=== PATIENT | male | born 1985 | race Caucasian/White ===

== ENCOUNTER 2017-06-04 12:45 | Emergency (ER) | payer MEDICAID ==
--- NOTE | 2017-06-04 14:05 | ER Document Report ---
HPI - HPI Patient complains to provider of: finger injury Onset: Yesterday Onset/Duration: Sudden Quality of pain: Throbbing Pain Level: 4 Context: 31-year-old was playing with his daughter and jammed his right third finger on the floor. It swollen and painful at the PIP joint. No previous injury. He is right-handed. Associated Symptoms: None Exacerbated by: Denies Relieved by: Denies Similar symptoms previously: No Recently seen / treated by doctor: No - ROS ROS below otherwise negative: Yes Systems Reviewed and Negative: Yes All other systems reviewed and negative Past Medical History - General Information source: Patient - Social History Smoking Status: Current Every Day Smoker Smoking Education Provided: Yes Frequency of alcohol use: None Drug Abuse: None Lives with: Family Family History: Reviewed & Not Pertinent - Medical History Medical History: Negative Surgical Hx: Negative Vertical Provider Document - CONSTITUTIONAL Agree With Documented VS: Yes Exam Limitations: No Limitations General Appearance: No Apparent Distress - INFECTION CONTROL TRAVEL OUTSIDE OF THE [place] IN LAST 30 DAYS: No - NECK Neck: Supple - MUSCULOSKELETAL/EXTREMETIES Musculoskeletal/Extremeties: Tender - Right third finger at the PIP joint. There is some swelling. Neurovascular is intact. The flexor tendons and extensor tendons are functioning normally., Edema. negative: FROM - NEURO Level of Consciousness: Awake Motor/Sensory: No Motor Deficit, No Sensory Deficit - DERM Integumentary: Warm, Dry Course - Re-evaluation Re-evalutation: 06/04/17 14:27 X-rays negative per radiologist - Vital Signs Vital signs: Temp Pulse Resp BP Pulse Ox 97.8 F 119 H 18 151/98 H 96 06/04/17 12:50 06/04/17 12:50 06/04/17 12:50 06/04/17 12:50 06/04/17 12:50 Procedures - Immobilization Right Finger 3rd digit Time completed: 15:03 Pre-Proc Neuro Vasc Exam: Normal Immobilizer type: Finger splint (Static) Performed by: PCT Post-Proc Neuro Vasc Exam: Normal Alignment checked and good: Yes Discharge - Discharge Clinical Impression: Right third finger sprain Condition: Good Disposition: HOME, SELF-CARE Instructions: Acetaminophen, Sprained Finger ([facility]), Temporary Splint ([facility]), Ultram ([facility]) Additional Instructions: splint tylenol motrin Call and schedule appointment with Dr. workman for finger recheck this week Prescriptions: Tramadol HCl [Ultram 50 mg Tablet] 50 mg PO ASDIR PRN #15 tablet PRN Reason: Forms: Return to Work Referrals: XIOMY HOWE DO [ACTIVE STAFF] - Follow up as needed (call for follow up appointment this week)
--- NOTE | 2017-06-04 14:12 | RADIOLOGY REPORT (SQ) ---
EXAM DESCRIPTION: FINGER RIGHT COMPLETED DATE/TIME: 06/04/2017 1:31 pm REASON FOR STUDY: jammed on floor 4-10 COMPARISON: None. NUMBER OF VIEWS: Three views. TECHNIQUE: AP, lateral, and oblique images acquired of the right 3rd finger LIMITATIONS: None. FINDINGS: MINERALIZATION: Normal. BONES: No acute fracture or dislocation. No worrisome bone lesions. SOFT TISSUES: No soft tissue swelling. No foreign body. OTHER: No other significant finding. IMPRESSION: NO RADIOGRAPHIC EVIDENCE OF ACUTE INJURY. COMMENT: SITE OF TRAUMA/COMPLAINT MARKED/STAMP COMPLETED: Yes TECHNICAL DOCUMENTATION: JOB ID: [id number] [employer]- All Rights Reserved Reading location - IP/workstation name: [email or web address]
[2017-06-04 15:26] VITALS: BP 132/97
== END 2017-06-04 15:25 | disposition home or self-care (01) ==
LOC: ER 12:45
DX: S63.612A Unspecified sprain of right middle finger, initial encounter (principal); W22.09XA Striking against other stationary object, initial encounter; F17.200 Nicotine dependence, unspecified, uncomplicated
CPT/HCPCS: 99283

== ENCOUNTER 2017-06-22 23:11 | Emergency (ER) | payer MEDICAID ==
[2017-06-23] MEDS ORDERED: PREDNISONE 20 MG TABLET PO ONE (01:47)
[2017-06-23] MEDS ORDERED: IPRATROPIUM/ALBUTEROL 0.5-2.5 MG/3 ML AMPUL NEB ONE ×2 (01:47→02:54)
--- NOTE | 2017-06-23 01:49 | ER Document Report ---
ED Respiratory Problem - General Chief Complaint: Breathing Difficulty Stated Complaint: DIFFICULTY BREATHING Time Seen by Provider: 06/23/17 01:33 Notes: Patient is a 31-year-old male comes emergency department for chief complaint of 2 days of cough, wheezing, shortness of breath. He states that he was mowing the lawn and kicked up a lot of dust, he states he thinks he inhaled some of it , he has been wheezing since that time. He does have a history of COPD, and smoking. He denies any daily medications. He denies fever. TRAVEL OUTSIDE OF THE [place] IN LAST 30 DAYS: No - Related Data Allergies/Adverse Reactions: amoxicillin Allergy (Verified 06/04/17 12:47) aspirin Allergy (Verified 06/04/17 12:47) Penicillins Allergy (Verified 06/04/17 12:47) Past Medical History - General Information source: Patient - Social History Smoking Status: Current Every Day Smoker Smoking Education Provided: Yes - <3 min Frequency of alcohol use: None Drug Abuse: None Lives with: Family Family History: Reviewed & Not Pertinent Pulmonary Medical History: Reports: Hx COPD Renal/ Medical History: Denies: Hx Peritoneal Dialysis - Immunizations Immunizations up to date: Yes Hx Diphtheria, Pertussis, Tetanus Vaccination: Yes Review of Systems - Review of Systems Constitutional: No symptoms reported EENT: No symptoms reported Cardiovascular: No symptoms reported Respiratory: See HPI Gastrointestinal: No symptoms reported Genitourinary: No symptoms reported Male Genitourinary: No symptoms reported Musculoskeletal: No symptoms reported Skin: No symptoms reported Hematologic/Lymphatic: No symptoms reported Neurological/Psychological: No symptoms reported Physical Exam - Vital signs Vitals: Temp Pulse Resp BP Pulse Ox 97.9 F 99 20 141/95 H 96 06/23/17 00:37 06/23/17 00:37 06/23/17 00:37 06/23/17 00:37 06/23/17 00:37 Interpretation: Normal - General General appearance: Appears well In distress: None - HEENT Head: Normocephalic, Atraumatic Eyes: Normal Extraocular movements intact: Yes Eyelashes: Normal Pupils: PERRL Nasal: Normal Mouth/Lips: Normal Mucous membranes: Normal Pharynx: Normal Neck: Normal - Respiratory Respiratory status: No respiratory distress. No: Respiratory distress, Labored , Tachypnea Chest status: Nontender Breath sounds: Decreased air movement, Nonproductive cough, Wheezing Chest palpation: Normal - Cardiovascular Rhythm: Regular Heart sounds: Normal auscultation Murmur: No - Abdominal Inspection: Normal Distension: No distension Bowel sounds: Normal Tenderness: Nontender Organomegaly: No organomegaly - Back Back: Normal, Nontender - Extremities General upper extremity: Normal inspection, Nontender, Normal color, Normal ROM , Normal temperature General lower extremity: Normal inspection, Nontender, Normal color, Normal ROM , Normal temperature, Normal weight bearing. No: Marta's sign - Neurological Neuro grossly intact: Yes Cognition: Normal Orientation: AAOx4 Elizabeth Coma Scale Eye Opening: Spontaneous Elizabeth Coma Scale Verbal: Oriented Yaneli Coma Scale Motor: Obeys Commands Yaneli Coma Scale Total: 15 Speech: Normal Motor strength normal: LUE, RUE, LLE, RLE Sensory: Normal - Psychological Associated symptoms: Normal affect, Normal mood - Skin Skin Temperature: Warm Skin Moisture: Dry Skin Color: Normal Course - Re-evaluation Re-evalutation: Patient had almost resolution of wheezing after DuoNeb treatments, he states he feels much better, recommended additional treatment but patient declined. Chest x-ray is unremarkable. Discussed smoking cessation, patient states he is almost quit, discussed treatment and follow-up, discussed return precautions, patient states satisfaction and agreement with plan. - Vital Signs Vital signs: Temp Pulse Resp BP Pulse Ox 97.8 F 91 16 146/90 H 94 06/23/17 04:11 06/23/17 04:11 06/23/17 04:11 06/23/17 04:11 06/23/17 04:11 Discharge - Discharge Clinical Impression: Cough, Wheezing, Tobacco abuse Condition: Stable Disposition: HOME, SELF-CARE Additional Instructions: Your chest x-ray does not show pneumonia. Your examination and symptoms are consistent with COPD exacerbation, take prednisone as prescribed, use albuterol inhaler as prescribed, stop smoking, follow-up with primary care. Return if you worsen including increased difficulty breathing, fever, or any other concerning or worsening symptoms. Prescriptions: Benzonatate [Tessalon Perle 100 mg Capsule] 100 mg PO Q8HP PRN #20 cap PRN Reason: Albuterol Sulfate [Proair HFA Inhalation Aerosol 8.5 gm MDI] 2 puff IH Q4H PRN # 1 mdi PRN Reason: Prednisone 60 mg PO DAILY #15 tablet
--- NOTE | 2017-06-23 03:06 | RADIOLOGY REPORT (SQ) ---
EXAM DESCRIPTION: CHEST 2 VIEWS CLINICAL HISTORY: 31 years Male, shortness of breath COMPARISON: None. NUMBER OF VIEWS/TECHNIQUE: 2, PA and Lateral LIMITATIONS: None. FINDINGS: Increased lung volume, small left basilar atelectasis or scar, and normal cardiac silhouette. Intact bony thorax. IMPRESSION: No acute cardiopulmonary findings.
[2017-06-23] MEDS ORDERED: ALBUTEROL SULFATE HFA (90 MCG/PUFF) 8 GM MDI (1 MDI/ER DISP) IH ONE (04:00)
[2017-06-23 04:15] VITALS: BP 146/90
--- NOTE | 2017-06-23 08:23 | EKG REPORT ---
SEVERITY:- NORMAL ECG - SINUS RHYTHM : Confirmed by: Gilmar Mistry MD 23-Jun-2017 08:22:33
== END 2017-06-23 04:15 | disposition home or self-care (01) ==
LOC: ER 23:11
DX: J44.9 Chronic obstructive pulmonary disease, unspecified (principal); R06.02 Shortness of breath; R05 Cough; F17.200 Nicotine dependence, unspecified, uncomplicated; Z88.0 Allergy status to penicillin; Z88.5 Allergy status to narcotic agent
CPT/HCPCS: 93005; 94640 ×2; 99285; 71046; 93010; J7512; J3490; J7620

== ENCOUNTER 2017-10-10 13:33 | Emergency (ER) | payer MEDICAID, OTHER ==
[2017-10-10] MEDS ORDERED: NORMAL SALINE 1000 ML 1,000 ML IV ONE ×2 (14:11→17:20)
[2017-10-10] MEDS ORDERED: MORPHINE SULFATE 10 MG/ML INJ IV ONE (14:11)
[2017-10-10] MEDS ORDERED: KETOROLAC TROMETHAMINE INJ/PF 30 MG/1 ML SDV IV ONE (14:11)
[2017-10-10] MEDS ORDERED: ONDANSETRON 4 MG TAB.RAPDIS PO ONE (14:11)
--- NOTE | 2017-10-10 14:13 | ER Document Report ---
ED Medical Screen (RME) - General Chief Complaint: Abdominal Pain Stated Complaint: RIGHT FLANK PAIN Time Seen by Provider: 10/10/17 14:11 Notes: 31 years old male with a history of hypertension presents today with right lower quadrant abdominal pain sometimes radiating to the right flank since last evening. The pain is progressively getting worse therefore present to the ED. On also having darker urine but did not notice any blood. Associated with nausea no vomiting. No fever chills or other constitutional symptoms. Right flank tenderness noted as well as right lower quadrant tenderness noted. TRAVEL OUTSIDE OF THE [place] IN LAST 30 DAYS: No - Related Data Allergies/Adverse Reactions: amoxicillin Allergy (Verified 10/10/17 13:37) aspirin Allergy (Verified 10/10/17 13:37) Penicillins Allergy (Verified 10/10/17 13:37) Past Medical History - Social History Chew tobacco use (# tins/day): No Frequency of alcohol use: Occasional - Past Medical History Cardiac Medical History: Reports: Hx Congestive Heart Failure, Hx Hypertension Pulmonary Medical History: Reports: Hx COPD Renal/ Medical History: Denies: Hx Peritoneal Dialysis - Immunizations Immunizations up to date: Yes Hx Diphtheria, Pertussis, Tetanus Vaccination: Yes Physical Exam - Vital signs Vitals: Temp Pulse Resp BP Pulse Ox 98.9 F 99 16 131/93 H 97 10/10/17 13:37 10/10/17 13:37 10/10/17 13:37 10/10/17 13:37 10/10/17 13:37 Course - Vital Signs Vital signs: Temp Pulse Resp BP Pulse Ox 98.9 F 99 16 131/93 H 97 10/10/17 13:37 10/10/17 13:37 10/10/17 13:37 10/10/17 13:37 10/10/17 13:37
[2017-10-10 15:03] LABS: ABSOLUTE BASOPHILS # (AUTO) 0.1 10^3/uL (0.0-0.2); ABSOLUTE EOSINOPHILS # (AUTO) 0.3 10^3/uL (0.0-0.6); ABSOLUTE LYMPHOCYTES (AUTO) 2.7 10^3/uL (0.5-4.7); ABSOLUTE MONOCYTES (AUTO) 0.9 10^3/uL (0.1-1.4); ABSOLUTE NEUT (AUTO) 9.4 10^3/uL (1.7-8.2); BASOPHILS % (AUTO) 0.7 % (0-2); HEMATOCRIT 48.8 % (37.9-51.0); HEMOGLOBIN 16.9 g/dL (13.5-17.0); LYMPHOCYTES % (AUTO) 20.2 % (13-45); MEAN CORPUSCULAR HEMOGLOBIN 30.3 pg (27.0-33.4); MEAN CORPUSCULAR HGB CONC 34.7 g/dL (32.0-36.0); MEAN CORPUSCULAR VOLUME 88 fl (80-97); MONOCYTES % (AUTO) 6.9 % (3-13); PLATELET COUNT 252 10^3/uL (150-450); RED BLOOD COUNT 5.57 10^6/uL (4.35-5.55); RED CELL DISTRIBUTION WIDTH 13.4 % (11.5-14.0); SEGMENTED NEUTROPHILS % (AUTO) 70.2 % (42-78); TOTAL CELLS COUNTED % (AUTO) 100 %; WHITE BLOOD COUNT 13.3 10^3/uL (4.0-10.5)
[2017-10-10 15:15] LABS: APPEARANCE,URINE SLIGHTLY-CLOUDY; BILIRUBIN,URINE SMALL (NEGATIVE); COLOR,URINE YELLOW; GLUCOSE, URINE NEGATIVE (NEGATIVE); KETONES,URINE TRACE mg/dL (NEGATIVE); LEUKOCYTE ESTERASE,URINE TRACE (NEGATIVE); NITRITE,URINE NEGATIVE (NEGATIVE); PROTEIN,URINE 100 mg/dL (NEGATIVE); URINE SPECIFIC GRAVITY 1.039
--- NOTE | 2017-10-10 15:21 | ER Document Report ---
ED GI/ - General Chief Complaint: Abdominal Pain Stated Complaint: RIGHT FLANK PAIN Time Seen by Provider: 10/10/17 14:11 Notes: 31-year-old obese hypertensive male history of CHF to the emergency department complaining of right flank pain and right lower quadrant pain. Some nausea but no vomiting. Dark colored urine. Denies any fever, chills, sweats. Denies any shortness of breath at this time. Denies any chest pain. TRAVEL OUTSIDE OF THE [place] IN LAST 30 DAYS: No - HPI Patient complains to provider of: Flank pain, Groin pain Onset: Yesterday Timing/Duration: Gradual, Worse Quality of pain: Stabbing Severity at maximum: Moderate Severity in ED: Moderate Pain Level: 3 Location: RLQ, Right flank - Related Data Allergies/Adverse Reactions: amoxicillin Allergy (Verified 10/10/17 13:37) aspirin Allergy (Verified 10/10/17 13:37) Penicillins Allergy (Verified 10/10/17 13:37) Past Medical History - General Information source: Patient - Social History Smoking Status: Current Every Day Smoker Chew tobacco use (# tins/day): No Frequency of alcohol use: Occasional Drug Abuse: None Lives with: Family Family History: Reviewed & Not Pertinent Patient has suicidal ideation: No Patient has homicidal ideation: No - Past Medical History Cardiac Medical History: Reports: Hx Congestive Heart Failure, Hx Hypertension Pulmonary Medical History: Reports: Hx COPD Renal/ Medical History: Denies: Hx Peritoneal Dialysis - Immunizations Immunizations up to date: Yes Hx Diphtheria, Pertussis, Tetanus Vaccination: Yes Review of Systems - Review of Systems Notes: Constitutional: denies: Chills, Diaphoresis, Fever, Malaise, Weakness EENT: denies: Eye discharge, Blurred vision, Tearing, Double vision, Nose congestion, Nose discharge, Throat swelling, Mouth pain Cardiovascular: denies: Palpitations, Heart racing, Orthopnea, Dyspnea, Chest pain Respiratory: denies: Cough, Hurts to breathe, Wheezing, Shortness of breath Gastrointestinal: This patient is complaining of pain in the right flank and right lower quadrant. No vomiting. Genitourinary: denies: Burning, Dysuria, Discharge, Frequency,. Patient complaining of right flank pain and darkened urine. Musculoskeletal: denies: Joint pain, Joint swelling, Muscle pain, Muscle stiffness, back pain Hematologic/Lymphatic: denies: Anemia, Easy bleeding, Easy bruising, Blood clots Neurological/Psychological: denies: Confusion, Dementia, Depression, Loss of consciousness Skin: No lesions, no masses, no skin breakdown, no abscesses Physical Exam - Vital signs Vitals: Temp Pulse Resp BP Pulse Ox 98.9 F 99 16 131/93 H 97 10/10/17 13:37 10/10/17 13:37 10/10/17 13:37 10/10/17 13:37 10/10/17 13:37 Interpretation: Normal - General General appearance: Appears well, Alert - HEENT Head: Normocephalic, Atraumatic Eyes: Normal Pupils: PERRL - Respiratory Respiratory status: No respiratory distress Chest status: Nontender Breath sounds: Normal Chest palpation: Normal - Cardiovascular Rhythm: Regular Heart sounds: Normal auscultation Murmur: No - Abdominal Inspection: Normal Distension: No distension Bowel sounds: Normal Tenderness: Tender - Mild tenderness in the right lower quadrant with no guarding or rebound. Organomegaly: No organomegaly - Back Back: Normal, CVA tenderness - Mild CVA tenderness on the right - Extremities General upper extremity: Normal inspection, Nontender, Normal color, Normal ROM , Normal temperature General lower extremity: Normal inspection, Nontender, Normal color, Normal ROM , Normal temperature, Normal weight bearing. No: Marta's sign - Neurological Neuro grossly intact: Yes Cognition: Normal Orientation: AAOx4 Callender Coma Scale Eye Opening: Spontaneous Callender Coma Scale Verbal: Oriented Callender Coma Scale Motor: Obeys Commands Yaneli Coma Scale Total: 15 Speech: Normal Motor strength normal: LUE, RUE, LLE, RLE Sensory: Normal - Psychological Associated symptoms: Normal affect, Normal mood - Skin Skin Temperature: Warm Skin Moisture: Dry Skin Color: Normal Course - Re-evaluation Re-evalutation: 10/10/17 18:14 Slight elevation in white blood cell count. CT scan was grossly unremarkable. Does have some WBCs as well as RBCs in the urine. Will treat for possible infection at this time. 10/10/17 18:38 Patient is feeling much better. CT scan was really unremarkable. I have ordered a GC and chlamydia urine specimen. Treated with Levaquin while in the emergency department. Will discharge on Cipro. Strict instructions were given that if symptoms are getting worse he should return. Patient verbalized understanding of these instructions and patient will be discharged at this time in stable condition after antibiotics are complete. 10/10/17 18:39 Laboratory 10/10/17 10/10/17 10/10/17 14:46 14:46 14:46 WBC 13.3 H RBC 5.57 H Hgb 16.9 Hct 48.8 MCV 88 MCH 30.3 MCHC 34.7 RDW 13.4 Plt Count 252 Seg Neutrophils % 70.2 Lymphocytes % 20.2 Monocytes % 6.9 Eosinophils % 2.0 Basophils % 0.7 Absolute Neutrophils 9.4 H Absolute Lymphocytes 2.7 Absolute Monocytes 0.9 Absolute Eosinophils 0.3 Absolute Basophils 0.1 Sodium 145.0 Potassium 4.8 Chloride 103 Carbon Dioxide 31 H Anion Gap 11 BUN 14 Creatinine 1.09 Est GFR ( Amer) > 60 Est GFR (Non-Af Amer) > 60 Glucose 65 L POC Glucose Calcium 10.0 Total Bilirubin 0.6 Direct Bilirubin 0.3 Neonat Total Bilirubin Not Reportable Neonat Direct Bilirubin Not Reportable Neonat Indirect Bili Not Reportable AST 30 ALT 33 Alkaline Phosphatase 57 Total Protein 7.4 Albumin 4.6 Lipase 124.4 Urine Color YELLOW Urine Appearance SLIGHTLY-CLOUDY Urine pH 5.0 Ur Specific [place] 1.039 Urine Protein 100 H Urine Glucose (UA) NEGATIVE Urine Ketones TRACE H Urine Blood SMALL H Urine Nitrite NEGATIVE Urine Bilirubin SMALL H Urine Urobilinogen 4.0 H Ur Leukocyte Esterase TRACE H Urine WBC (Auto) 3 Urine RBC (Auto) 61 Urine Bacteria (Auto) 3+ Squamous Epi Cells Auto 1 Urine Mucus (Auto) MANY Urine Ascorbic Acid 20 H 10/10/17 16:30 WBC RBC Hgb Hct MCV MCH MCHC RDW Plt Count Seg Neutrophils % Lymphocytes % Monocytes % Eosinophils % Basophils % Absolute Neutrophils Absolute Lymphocytes Absolute Monocytes Absolute Eosinophils Absolute Basophils Sodium Potassium Chloride Carbon Dioxide Anion Gap BUN Creatinine Est GFR ( Amer) Est GFR (Non-Af Amer) Glucose POC Glucose 87 Calcium Total Bilirubin Direct Bilirubin Neonat Total Bilirubin Neonat Direct Bilirubin Neonat Indirect Bili AST ALT Alkaline Phosphatase Total Protein Albumin Lipase Urine Color Urine Appearance Urine pH Ur Specific [place] Urine Protein Urine Glucose (UA) Urine Ketones Urine Blood Urine Nitrite Urine Bilirubin Urine Urobilinogen Ur Leukocyte Esterase Urine WBC (Auto) Urine RBC (Auto) Urine Bacteria (Auto) Squamous Epi Cells Auto Urine Mucus (Auto) Urine Ascorbic Acid Abdomen/Pelvis CT 10/10/17 14:11 IMPRESSION: No significant acute findings are seen in the abdomen or pelvis. The appendix is not identified, but no pericecal inflammatory changes are seen. There are no findings to explain the patient's pain. - Vital Signs Vital signs: Temp Pulse Resp BP Pulse Ox 98.9 F 99 16 131/93 H 97 10/10/17 13:37 10/10/17 13:37 10/10/17 13:37 10/10/17 13:37 10/10/17 13:37 - Laboratory Result Diagrams: 10/10/17 14:46 10/10/17 14:46 Laboratory results interpreted by me: 10/10/17 10/10/17 10/10/17 14:46 14:46 14:46 WBC 13.3 H RBC 5.57 H Absolute Neutrophils 9.4 H Carbon Dioxide 31 H Glucose 65 L Urine Protein 100 H Urine Ketones TRACE H Urine Blood SMALL H Urine Bilirubin SMALL H Urine Urobilinogen 4.0 H Ur Leukocyte Esterase TRACE H Urine Ascorbic Acid 20 H Discharge - Discharge Clinical Impression: Flank pain, acute Urinary tract infection Qualifiers: Urinary tract infection type: site unspecified Hematuria presence: with hematuria Qualified Code(s): N39.0 - Urinary tract infection, site not specified ; R31.9 - Hematuria, unspecified; R31.9 - Hematuria, unspecified Condition: Good Disposition: HOME, SELF-CARE Instructions: Abdominal Pain ([facility]), Urinary Tract Infection ([facility]), Flank Pain ( [facility]) Additional Instructions: It is very important that you take your medications as prescribed. In the event that symptoms are getting worse over the next 24 hours please return for repeat evaluation. You had a CT scan which did not show anything but these are not perfect. In the event that symptoms are getting worse she may need to have repeat imaging performed. Prescriptions: Ciprofloxacin HCl [Cipro 500 mg Tablet] 500 mg PO BID 10 Days #20 tablet Ibuprofen [Motrin 800 mg Tablet] 800 mg PO Q8H PRN 10 Days #30 tab PRN Reason: For Pain Scale 3-4 Forms: Return to Work
[2017-10-10 15:26] LABS: ALANINE AMINOTRANSFERASE 33 U/L (21-72); ALBUMIN 4.6 g/dL (3.5-5.0); ALKALINE PHOSPHATASE 57 U/L (38-126); ANION GAP 11 (5-19); ASPARTATE AMINO TRANSFERASE 30 U/L (17-59); BILIRUBIN,DIRECT 0.3 mg/dL (0.0-0.4); BILIRUBIN,TOTAL 0.6 mg/dL (0.2-1.3); BLOOD UREA NITROGEN 14 mg/dL (7-20); CARBON DIOXIDE 31 mmol/L (22-30); CHLORIDE 103 mmol/L (98-107); GLUCOSE 65 mg/dL (75-110); LIPASE 124.4 U/L (23-300); POTASSIUM 4.8 mmol/L (3.6-5.0); TOTAL PROTEIN 7.4 g/dL (6.3-8.2)
--- NOTE | 2017-10-10 16:49 | RADIOLOGY REPORT (SQ) ---
EXAM DESCRIPTION: CT ABD/PELVIS WITH IV ONLY COMPLETED DATE/TIME: 10/10/2017 4:22 pm REASON FOR STUDY: Right lower quadrant abdominal pain COMPARISON: None. TECHNIQUE: CT scan of the abdomen and pelvis performed using helical scanning technique with dynamic intravenous contrast injection. No oral contrast. Images reviewed with lung, soft tissue, and bone windows. Reconstructed coronal and sagittal MPR images reviewed. Delayed images for evaluation of the urinary system also acquired. All images stored on PACS. All CT scanners at this facility use dose modulation, iterative reconstruction, and/or weight based d osing when appropriate to reduce radiation dose to as low as reasonably achievable (ALARA). [facility]: Dose Right [facility]: CareDose [facility]: Dose Right [facility]: Teradose 4D [facility]: Inkblazers CONTRAST TYPE AND DOSE: contrast/concentration: Isovue 350.00 mg/ml; Total Contrast Delivered: 100.0 ml; Total Saline Delivered: 50.0 ml RENAL FUNCTION: BUN 14 creatinine 1.1 RADIATION DOSE: CT Rad equipment meets quality standard of care and radiation dose reduction techniq ues were employed. CTDIvol: 21.0 - 21.1 mGy. DLP: 2276 mGy-cm.. LIMITATIONS: None. FINDINGS: LOWER CHEST: No significant findings. No nodules or infiltrates. LIVER: Normal size. No masses. No dilated ducts. SPLEEN: Normal size. No focal lesions. PANCREAS: No masses. No significant calcifications. No adjacent inflammation or peripancreatic fluid collections. Pancreatic duct not dilated. GALLBLADDER: No identified stones by CT criteria. No inflammatory changes to suggest cholecystitis. ADRENAL GLANDS: No significant masses or asymmetry. RIGHT KIDNEY AND URETER: No solid masses. No significant calcifications. No hydronephrosis or hyd roureter. LEFT KIDNEY AND URETER: No solid masses. No significant calcifications. No hydronephrosis or hydr oureter. AORTA AND VESSELS: No aneurysm. No dissection. Renal arteries, SMA, celiac without stenosis. RETROPERITONEUM: A couple small pericecal lymph nodes are present. No retroperitoneal masses or hemo rrhage. BOWEL AND PERITONEAL CAVITY: No masses or inflammatory changes. No free fluid or peritoneal masses. APPENDIX: Not identified. No pericecal inflammatory changes are present. PELVIS: No mass. No free fluid. Normal bladder. ABDOMINAL WALL: No masses. No hernias. BONES: No significant or acute findings. OTHER: No other significant finding. IMPRESSION: No significant acute findings are seen in the abdomen or pelvis. The appendix is not id entified, but no pericecal inflammatory changes are seen. There are no findings to explain the patie nt's pain. TECHNICAL DOCUMENTATION: JOB ID: [id number] Quality ID # [id number]: Final reports with documentation of one or more dose reduction techniques (e.g., Au tomated exposure control, adjustment of the mA and/or kV according to patient size, use of iterative reconstruction technique) 2010 [employer]- All Rights Reserved Reading location - IP/workstation name: [email or web address]
[2017-10-10] MEDS ORDERED: HYDROMORPHONE HCL INJ/PF 2 MG/ML AMPULE IV ONE (17:19)
[2017-10-10] MEDS ORDERED: LEVOFLOXACIN 750 MG/D5W RTU 750 MG/150 ML RTUPB IV ONE (17:22)
[2017-10-10 19:17] VITALS: BP 148/94
[2017-10-10 20:25] LABS: CHLAM PCR NOT DETECTED (NOT DETECT); GON PCR NOT DETECTED (NOT DETECT)
== END 2017-10-10 19:17 | disposition home or self-care (01) ==
LOC: ER 13:33
DX: N39.0 Urinary tract infection, site not specified (principal); R10.9 Unspecified abdominal pain; R31.9 Hematuria, unspecified; F17.200 Nicotine dependence, unspecified, uncomplicated; I50.9 Heart failure, unspecified; I11.0 Hypertensive heart disease with heart failure; J44.9 Chronic obstructive pulmonary disease, unspecified; Z88.0 Allergy status to penicillin; Z88.6 Allergy status to analgesic agent
CPT/HCPCS: 99284; 96361; 96375; 96365; 36415; 87086; 82962; 83690; 85025; 80053; 81001; 87491; 87591; 74177; S0119; J1885; J2270; J1170; J7030; J1956